=== PATIENT | female | born 2000 | race Caucasian/White ===

== ENCOUNTER 2022-01-06 13:01 | Emergency (ER) | payer BC, MEDICAID ==
[2022-01-06] MEDS ORDERED: Ondansetron 4 MG Tab.DIS PO ONE (14:18)
== END 2022-01-06 14:26 | disposition home or self-care (01) ==
LOC: JP.ED 13:01
DX: O21.9 Vomiting of pregnancy, unspecified (principal); Z3A.12 12 weeks gestation of pregnancy
CPT/HCPCS: 99283; Q0162

== ENCOUNTER 2023-07-21 01:53 | Emergency (ER) | payer BC, MEDICAID ==
[2023-07-21 02:45] LABS: BASOPHILS ABSOLUTE AUTO 0.06 K/uL (0.00-0.10); BASOPHILS PERCENT AUTO 0.9 % (0.1-1.3); EOSINOPHILS ABSOLUTE AUTO 0.23 K/uL (0.00-0.40); EOSINOPHILS PERCENT AUTO 3.3 % (0.0-5.4); HEMATOCRIT 36.6 % (34.3-46.0); HEMOGLOBIN 12.1 g/dL (11.2-15.5); IMMATURE GRAN PERCENT AUTO 0.3 % (0.0-0.7); LYMPHOCYTES ABSOLUTE AUTO 2.64 K/uL (0.8-3.3); LYMPHOCYTES PERCENT AUTO 38.1 % (11.4-47.7); MEAN CORPUSCULAR HEMOGLOBIN 28.1 pg (31.6-35.5); MEAN CORPUSCULAR HGB CONC 33.1 g/dL (31.6-35.5); MEAN CORPUSCULAR VOLUME 85.1 fL (81.4-99.0); MONOCYTES ABSOLUTE AUTO 0.47 K/uL (0.20-0.90); MONOCYTES PERCENT AUTO 6.8 % (3.3-12.6); NEUTROPHILS ABSOLUTE AUTO 3.51 K/uL (1.0-7.6); NEUTROPHILS PERCENT AUTO 50.6 % (40.0-78.1); PLATELET COUNT,PLT 309 K/uL (130-375); WHITE BLOOD CELL COUNT,WBC 6.9 K/uL (3.2-11.0)
[2023-07-21 02:47] LABS: IMMATURE GRAN ABSOLUTE AUTO 0.02 K/uL (0.00-0.23)
[2023-07-21 02:56] LABS: ANION GAP 12.9 mmol/L (5.0-14.0); CALCIUM 8.8 mg/dL (8.5-10.1); CREATININE 0.7 mg/dL (0.6-1.0); EST CRCL DRUG DOSING (CG) 119.01 mL/min; POTASSIUM,K 3.9 mmol/L (3.6-5.2)
== END 2023-07-21 03:10 | disposition home or self-care (01) ==
LOC: JP.ED 01:53
DX: J02.9 Acute pharyngitis, unspecified (principal); Z20.822 Contact with and (suspected) exposure to COVID-19
CPT/HCPCS: 36415; 80048; 85025; 87651-QW; 99282; 99283; U0002

== ENCOUNTER 2025-06-07 17:56 | Emergency (ER) | payer BC, OTHER ==
[2025-06-07 19:24] LABS: APPEARANCE,URINE CLEAR (CLEAR); GLUCOSE,URINE NEGATIVE (NEGATIVE); OCCULT BLOOD,URINE NEGATIVE (NEGATIVE)
[2025-06-07 19:29] LABS: SQUAMOUS EPITHELIAL CELLS,UR FEW /HPF; UROTHELIAL CELLS,URINE NOT SEEN /HPF
[2025-06-07] MEDS ORDERED: Sodium Chloride 0.9% 10 ML Syringe FLUSH PRN (19:49)
[2025-06-07 20:17] LABS: BASOPHILS ABSOLUTE AUTO 0.07 K/uL (0.00-0.10); BASOPHILS PERCENT AUTO 0.9 % (0.1-1.3); EOSINOPHILS ABSOLUTE AUTO 0.15 K/uL (0.00-0.40); EOSINOPHILS PERCENT AUTO 2.0 % (0.0-5.4); IMMATURE GRAN PERCENT AUTO 0.3 % (0.0-0.7); LYMPHOCYTES ABSOLUTE AUTO 2.10 K/uL (0.8-3.3); LYMPHOCYTES PERCENT AUTO 27.5 % (11.4-47.7); MONOCYTES ABSOLUTE AUTO 0.48 K/uL (0.20-0.90); MONOCYTES PERCENT AUTO 6.3 % (3.3-12.6); NEUTROPHILS ABSOLUTE AUTO 4.83 K/uL (1.0-7.6); NEUTROPHILS PERCENT AUTO 63.0 % (40.0-78.1); PLATELET COUNT,PLT 297 K/uL (130-375); RED BLOOD CELL COUNT 3.98 M/uL (3.77-5.24); WHITE BLOOD CELL COUNT,WBC 7.7 K/uL (3.2-11.0)
[2025-06-07 20:23] LABS: IMMATURE GRAN ABSOLUTE AUTO 0.02 K/uL (0.00-0.23)
[2025-06-07 20:41] LABS: A/G RATIO 1.2 (1.2-2.2); ALANINE AMINOTRANSFERASE,ALT 23 U/L (12-78); ASPARTATE AMNIOTRANSFERASE,AST 15 U/L (15-37); BILIRUBIN TOTAL 0.3 mg/dL (0.2-1.0); BLOOD UREA NITROGEN,BUN 11 mg/dL (7-18); CARBON DIOXIDE,CO2 28 mmol/L (21-32); CHLORIDE,CL 104 mmol/L (100-108); CREATININE 0.8 mg/dL (0.6-1.0); EST CRCL DRUG DOSING (CG) 114.30 mL/min; ESTIMATED GFR 106 mL/min (>60); GLUCOSE RANDOM 120 mg/dL (74-106); POTASSIUM,K 3.7 mmol/L (3.6-5.2); PROTEIN TOTAL,TP 7.3 g/dL (6.4-8.2); SODIUM,NA 139 mmol/L (140-148)
[2025-06-07] MEDS: Iopamidol 755 Mg/ML 100 ML Bottle IV SCH (21:09)
[2025-06-07] MEDS: Ondansetron 4 MG/2 ML SDV IVPUSH ONE (21:26)
== END 2025-06-07 21:52 | disposition home or self-care (01) ==
LOC: JP.ED 17:56
DX: R42 Dizziness and giddiness (principal); R41.0 Disorientation, unspecified; F17.200 Nicotine dependence, unspecified, uncomplicated; Z86.16 Personal history of COVID-19
CPT/HCPCS: 36415; 70450; 70496; 70498; 80053; 81001; 81025; 83605; 84484; 85025; 96374; 99284; J2405; J7030; Q9967